=== PATIENT | female | born 1945 | race Caucasian/White ===

== ENCOUNTER 2016-12-31 14:31 | Emergency (ER) | payer MEDICARE, MEDICAID ==
[2016-12-31] MEDS ORDERED: TDaP 0.5 ML VIAL IM.VACC ONE (15:03)
[2016-12-31] MEDS ORDERED: ONDANSETRON ODT 4 MG TAB ONE (15:58)
== END 2016-12-31 16:40 | disposition home or self-care (01) ==
LOC: ER 15:07
DX: S01.01XA Laceration without foreign body of scalp, initial encounter (principal); W20.8XXA Other cause of strike by thrown, projected or falling object, initial encounter; Y93.B9 Activity, other involving muscle strengthening exercises; Y92.009 Unspecified place in unspecified non-institutional (private) residence as the place of occurrence of the external cause; Z23 Encounter for immunization
CPT/HCPCS: 70450; 90471